=== PATIENT | male | born 1960 | race Caucasian/White ===

== ENCOUNTER 2018-03-13 14:27 | Observation (INO) | payer OTHER ==
[~2018-03-13] VITALS: Ht 175.3 cm; Wt 127.0 kg
[~2018-03-13 14:27] MED LIST: AMOXICILLIN/PO500 MG PO; CATAPRES0.1 MG PO; EQL ASPIRIN325 MG PO; FLOMAX0.4 M1 PO; HYDROCHLOROT25 MG PO; LORTAB 10 PO; METOPROL TAR100 MG PO; PRILOSEC20 MG/CAP PO; ULTRAM50 M1 PO
[2018-03-13] MEDS ORDERED: LEVOTHYROXIN25 MC1 PO (16:01)
[2018-03-13] MEDS ORDERED: AMLODIPINE BESYL5 MG PO (16:01)
[2018-03-13] MEDS ORDERED: ASPIRIN EC325 MG PO (16:02)
[2018-03-13 16:18] LABS: HEMATOCRIT 38.4 % (39.0-50.0); HEMOGLOBIN 12.6 g/dl (14.0-18.0); IMMATURE GRANULOCYTES 0.9 % (0.0-5.0); MEAN CELL VOLUME 85.7 fL CALC (80.0-100.0); MEAN CORPUSCULAR HGB 28.1 pG CALC (26.0-32.0); MEAN CORPUSCULAR HGB CONC 32.8 g/L CALC (32.0-36.0); NEUT# 12.5 thou/uL (1.82-7.42); RED BLOOD COUNT 4.48 mill/uL (4.70-6.10); RED CELL DISTRI WIDTH 13.2 % (11.5-15.5)
[2018-03-13 16:42] LABS: ALBUMIN 3.9 g/dL (3.2-5.0); BILIRUBIN, TOTAL 0.4 mg/dL (0.0-1.4); CREATININE 1.6 mg/dL (0.7-1.3); POTASSIUM 2.8 mmol/l (3.5-5.1); TOTAL PROTEIN 7.6 g/dL (6.3-8.2)
[2018-03-13] MEDS ORDERED: POTASSIUM99 MG PO (18:19)
[2018-03-13 18:30] VITALS: BP 155/80
[2018-03-13 18:44] LABS: URINE BILIRUBIN - DIPSTICK NEGATIVE (NEGATIVE); URINE BLOOD DIPSTICK NEGATIVE (NEGATIVE); URINE COLOR YELLOW; URINE GLUCOSE - DIPSTICK NEGATIVE (NEGATIVE); URINE KETONE NEGATIVE (NEGATIVE); URINE LEUK ESTERASE NEGATIVE (NEGATIVE); URINE NITRITE - DIPSTICK NEGATIVE (Negative); URINE PROTEIN - DIPSTICK TRACE mg/dL (NEG-TRACE); URINE SPECIFIC GRAVITY 1.015; URINE UROBILINOGEN - DIPSTICK 0.2 E.U./dL (0.2)
[2018-03-13 18:48] LABS: URINE CLARITY CLEAR
[2018-03-14 04:18] VITALS: BP 141/72
[2018-03-14 05:51] LABS: HEMOGLOBIN 11.3 g/dl (14.0-18.0); MEAN CELL VOLUME 86.5 fL CALC (80.0-100.0); MEAN CORPUSCULAR HGB 28.8 pG CALC (26.0-32.0); MEAN CORPUSCULAR HGB CONC 33.2 g/L CALC (32.0-36.0); RED BLOOD COUNT 3.93 mill/uL (4.70-6.10); RED CELL DISTRI WIDTH 13.2 % (11.5-15.5)
[2018-03-14 06:16] LABS: ANION GAP 11 (6-22 (CALC)); BUN 23 mg/dL (9-20); BUN/CREATININE RATIO 19 (12-20 (CALC)); CALCULATED LDLCHOLESTEROL 52 mg/dL (62-129 (CALC)); CARBON DIOXIDE 29 mmol/l (22-30); CHLORIDE 104 mmol/l (95-108); CHOLESTEROL HDL RATIO 4.2 (<4.4 (CALC)); CREATININE 1.2 mg/dL (0.7-1.3); GFR > 60 ML/MIN (>=60 (CALC)); GFR FOR AFR.AMER. > 60 ML/MIN (>=60 (CALC)); HDL CHOLESTEROL 20 mg/dL (>=40); MAGNESIUM 2.4 mg/dL (1.6-2.3); POTASSIUM 3.1 mmol/l (3.5-5.1); SODIUM 142 mmol/l (137-146); TOTAL CHOLESTEROL 85 mg/dl (0-199); TOTAL TRIGLYCERIDES 63 mg/dl (30-149); VLDL CHOLESTROL 13 mg/dl (8-62 (CALC))
[2018-03-14 08:15] VITALS: BP 146/77
[2018-03-14 11:09] LABS: INFLUENZA A NONE DETECTED (NONE DETECT); INFLUENZA B NONE DETECTED (NONE DETECT)
[2018-03-14 14:51] VITALS: BP 129/76
[2018-03-14 15:40] VITALS: BP 134/76
[2018-03-15 04:00] VITALS: BP 146/84
[2018-03-15 06:12] LABS: HEMOGLOBIN 11.8 g/dl (14.0-18.0); IMMATURE GRANULOCYTES 1.4 % (0.0-5.0); MEAN CELL VOLUME 86.7 fL CALC (80.0-100.0); MEAN CORPUSCULAR HGB 28.4 pG CALC (26.0-32.0); MEAN CORPUSCULAR HGB CONC 32.8 g/L CALC (32.0-36.0); NEUT# 13.39 thou/uL (1.82-7.42); RED BLOOD COUNT 4.15 mill/uL (4.70-6.10)
[2018-03-15 06:24] LABS: ANION GAP 15 (6-22 (CALC)); BUN 20 mg/dL (9-20); BUN/CREATININE RATIO 21 (12-20 (CALC)); CARBON DIOXIDE 28 mmol/l (22-30); CHLORIDE 103 mmol/l (95-108); GFR > 60 ML/MIN (>=60 (CALC)); GFR FOR AFR.AMER. > 60 ML/MIN (>=60 (CALC)); MAGNESIUM 2.3 mg/dL (1.6-2.3); POTASSIUM 3.4 mmol/l (3.5-5.1); SODIUM 143 mmol/l (137-146)
[2018-03-15 08:18] VITALS: BP 138/80
[2018-03-15 15:32] VITALS: BP 152/66
[2018-03-15 15:33] VITALS: BP 152/66
[2018-03-15 19:00] VITALS: BP 136/72
[2018-03-16 05:15] VITALS: BP 143/80
[2018-03-16 09:44] VITALS: BP 150/79
[2018-03-16 15:19] VITALS: BP 157/74
[2018-03-16 19:00] VITALS: BP 147/76
[2018-03-17 04:00] VITALS: BP 151/85
[2018-03-17 07:52] VITALS: BP 158/81
[2018-03-17 16:55] VITALS: BP 170/76
== END 2018-03-17 18:30 | disposition home or self-care (01) | DRG 603 ==
LOC: ED 14:27 → ED-I 17:34 → ED 17:45 → MS2 17:46
PROVIDERS: Emergency Medicine; Nurse Practitioner Family; ADMIT Internal Medicine; ATTEND Internal Medicine
DX: L03.115 Cellulitis of right lower limb (principal); M10.071 Idiopathic gout, right ankle and foot; Z68.41 Body mass index [BMI] 40.0-44.9, adult; N17.9 Acute kidney failure, unspecified; I10 Essential (primary) hypertension; E03.9 Hypothyroidism, unspecified; E66.01 Morbid (severe) obesity due to excess calories; E87.6 Hypokalemia; R26.9 Unspecified abnormalities of gait and mobility; D64.9 Anemia, unspecified; I25.2 Old myocardial infarction; Z86.73 Personal history of transient ischemic attack (TIA), and cerebral infarction without residual deficits
CPT/HCPCS: G0378; J1650

== ENCOUNTER 2018-03-25 10:43 | Inpatient (IN) | payer OTHER ==
[~2018-03-25] VITALS: Ht 175.3 cm; Wt 130.3 kg
[~2018-03-25 10:43] MED LIST changes: +AMLODIPINE BESYL5 MG PO; +ASPIRIN EC325 MG PO; +LEVOTHYROXIN25 MC1 PO; +POTASSIUM99 MG PO
[2018-03-25 12:17] LABS: HEMATOCRIT 34.8 % (39.0-50.0); HEMOGLOBIN 11.6 g/dl (14.0-18.0); MEAN CELL VOLUME 85.7 fL CALC (80.0-100.0); MEAN CORPUSCULAR HGB 28.6 pG CALC (26.0-32.0); MEAN CORPUSCULAR HGB CONC 33.3 g/L CALC (32.0-36.0); RED BLOOD COUNT 4.06 mill/uL (4.70-6.10); RED CELL DISTRI WIDTH 13.5 % (11.5-15.5)
[2018-03-25 12:41] LABS: ALBUMIN 3.1 g/dL (3.2-5.0); ALKALINE PHOSPHATASE 71 u/l (38-126); ANION GAP 15 (6-22 (CALC)); BILIRUBIN, TOTAL 0.7 mg/dL (0.0-1.4); BUN 27 mg/dL (9-20); BUN/CREATININE RATIO 28 (12-20 (CALC)); CARBON DIOXIDE 32 mmol/l (22-30); CHLORIDE 98 mmol/l (95-108); GFR > 60 ML/MIN (>=60 (CALC)); GFR FOR AFR.AMER. > 60 ML/MIN (>=60 (CALC)); SGOT/AST 48 u/l (17-59); SGPT/ALT 46 u/l (21-72); SODIUM 142 mmol/l (137-146); TOTAL PROTEIN 6.2 g/dL (6.3-8.2)
[2018-03-25 12:53] LABS: URINE BILIRUBIN - DIPSTICK NEGATIVE (NEGATIVE); URINE BLOOD DIPSTICK NEGATIVE (NEGATIVE); URINE GLUCOSE - DIPSTICK NEGATIVE (NEGATIVE); URINE KETONE NEGATIVE (NEGATIVE); URINE LEUK ESTERASE NEGATIVE (NEGATIVE); URINE NITRITE - DIPSTICK NEGATIVE (Negative)
[2018-03-25 12:55] LABS: URINE CLARITY CLEAR; URINE COLOR DK. YELLOW; URINE PROTEIN - DIPSTICK Trace mg/dL (NEG-TRACE)
[2018-03-25 12:58] LABS: BARBITURATES NEGATIVE (NEGATIVE); COCAINE NEGATIVE (NEGATIVE); METHADONE NEGATIVE (NEGATIVE); OXCYCODONE NEGATIVE (NEGATIVE); TETRAHYDROCANNABIONOL NEGATIVE (NEGATIVE); TRICYLIC ANTIDEPRESSANTS NEGATIVE (NEGATIVE)
[2018-03-25 15:00] VITALS: BP 136/83
[2018-03-25 19:40] VITALS: BP 112/69
[2018-03-26 03:45] VITALS: BP 122/73
[2018-03-26 05:59] LABS: HEMATOCRIT 36.1 % (39.0-50.0); HEMOGLOBIN 11.8 g/dl (14.0-18.0); IMMATURE GRANULOCYTES 0.9 % (0.0-5.0); MEAN CELL VOLUME 86.6 fL CALC (80.0-100.0); MEAN CORPUSCULAR HGB 28.3 pG CALC (26.0-32.0); MEAN CORPUSCULAR HGB CONC 32.7 g/L CALC (32.0-36.0); NEUT# 15.95 thou/uL (1.82-7.42); RED BLOOD COUNT 4.17 mill/uL (4.70-6.10); RED CELL DISTRI WIDTH 13.6 % (11.5-15.5)
[2018-03-26 06:16] LABS: ALKALINE PHOSPHATASE 73 u/l (38-126); ANION GAP 15 (6-22 (CALC)); BILIRUBIN, TOTAL 0.4 mg/dL (0.0-1.4); BUN 36 mg/dL (9-20); BUN/CREATININE RATIO 29 (12-20 (CALC)); CARBON DIOXIDE 31 mmol/l (22-30); CHLORIDE 99 mmol/l (95-108); CREATININE 1.2 mg/dL (0.7-1.3); GFR > 60 ML/MIN (>=60 (CALC)); GFR FOR AFR.AMER. > 60 ML/MIN (>=60 (CALC)); MAGNESIUM 2.4 mg/dL (1.6-2.3); POTASSIUM 3.5 mmol/l (3.5-5.1); SGOT/AST 27 u/l (17-59); SGPT/ALT 47 u/l (21-72); SODIUM 142 mmol/l (137-146); TOTAL PROTEIN 6.2 g/dL (6.3-8.2)
[2018-03-26 08:00] VITALS: BP 144/72
[2018-03-26 15:25] VITALS: BP 120/59
[2018-03-26 19:00] VITALS: BP 116/66
[2018-03-27 04:55] VITALS: BP 125/73
[2018-03-27 05:55] LABS: HEMATOCRIT 33.2 % (39.0-50.0); HEMOGLOBIN 10.9 g/dl (14.0-18.0); MEAN CELL VOLUME 85.8 fL CALC (80.0-100.0); MEAN CORPUSCULAR HGB 28.2 pG CALC (26.0-32.0); MEAN CORPUSCULAR HGB CONC 32.8 g/L CALC (32.0-36.0); RED BLOOD COUNT 3.87 mill/uL (4.70-6.10); RED CELL DISTRI WIDTH 13.2 % (11.5-15.5)
[2018-03-27 06:29] LABS: ANION GAP 15 (6-22 (CALC)); BUN 46 mg/dL (9-20); BUN/CREATININE RATIO 41 (12-20 (CALC)); CARBON DIOXIDE 28 mmol/l (22-30); CHLORIDE 97 mmol/l (95-108); CREATININE 1.1 mg/dL (0.7-1.3); GFR > 60 ML/MIN (>=60 (CALC)); GFR FOR AFR.AMER. > 60 ML/MIN (>=60 (CALC)); MAGNESIUM 2.4 mg/dL (1.6-2.3); POTASSIUM 3.6 mmol/l (3.5-5.1); SODIUM 137 mmol/l (137-146)
[2018-03-27 07:55] VITALS: BP 146/84
[2018-03-27 15:12] VITALS: BP 123/71
[2018-03-27 19:39] VITALS: BP 122/78
[2018-03-28 05:02] VITALS: BP 146/76
[2018-03-28 05:15] LABS: HEMATOCRIT 34.1 % (39.0-50.0); HEMOGLOBIN 11.4 g/dl (14.0-18.0); MEAN CELL VOLUME 84.6 fL CALC (80.0-100.0); MEAN CORPUSCULAR HGB 28.3 pG CALC (26.0-32.0); MEAN CORPUSCULAR HGB CONC 33.4 g/L CALC (32.0-36.0); RED BLOOD COUNT 4.03 mill/uL (4.70-6.10); RED CELL DISTRI WIDTH 12.9 % (11.5-15.5)
[2018-03-28 05:38] LABS: ANION GAP 12 (6-22 (CALC)); BUN 45 mg/dL (9-20); BUN/CREATININE RATIO 41 (12-20 (CALC)); CARBON DIOXIDE 33 mmol/l (22-30); CHLORIDE 94 mmol/l (95-108); CREATININE 1.1 mg/dL (0.7-1.3); GFR > 60 ML/MIN (>=60 (CALC)); GFR FOR AFR.AMER. > 60 ML/MIN (>=60 (CALC)); MAGNESIUM 2.5 mg/dL (1.6-2.3); SODIUM 135 mmol/l (137-146)
[2018-03-28 09:56] VITALS: BP 128/77
[2018-03-28 15:25] VITALS: BP 115/69
[2018-03-28 19:10] VITALS: BP 116/70
[2018-03-29 04:00] VITALS: BP 133/79
[2018-03-29 05:27] LABS: HEMATOCRIT 33.5 % (39.0-50.0); HEMOGLOBIN 11.2 g/dl (14.0-18.0); MEAN CELL VOLUME 84.2 fL CALC (80.0-100.0); MEAN CORPUSCULAR HGB 28.1 pG CALC (26.0-32.0); MEAN CORPUSCULAR HGB CONC 33.4 g/L CALC (32.0-36.0); RED BLOOD COUNT 3.98 mill/uL (4.70-6.10); RED CELL DISTRI WIDTH 12.8 % (11.5-15.5)
[2018-03-29 05:56] LABS: ANION GAP 12 (6-22 (CALC)); BUN 42 mg/dL (9-20); BUN/CREATININE RATIO 38 (12-20 (CALC)); CARBON DIOXIDE 33 mmol/l (22-30); CHLORIDE 95 mmol/l (95-108); CREATININE 1.1 mg/dL (0.7-1.3); GFR > 60 ML/MIN (>=60 (CALC)); GFR FOR AFR.AMER. > 60 ML/MIN (>=60 (CALC)); MAGNESIUM 2.5 mg/dL (1.6-2.3); POTASSIUM 3.8 mmol/l (3.5-5.1); SODIUM 136 mmol/l (137-146)
[2018-03-29 09:20] VITALS: BP 121/65
[2018-03-29 15:29] VITALS: BP 112/60
[2018-03-29 19:21] VITALS: BP 123/70
[2018-03-30 03:59] VITALS: BP 130/65
[2018-03-30 05:05] LABS: HEMATOCRIT 38.8 % (39.0-50.0); HEMOGLOBIN 12.8 g/dl (14.0-18.0)
[2018-03-30 05:29] LABS: ANION GAP 13 (6-22 (CALC)); BUN 36 mg/dL (9-20); BUN/CREATININE RATIO 38 (12-20 (CALC)); CARBON DIOXIDE 32 mmol/l (22-30); CHLORIDE 99 mmol/l (95-108); GFR > 60 ML/MIN (>=60 (CALC)); GFR FOR AFR.AMER. > 60 ML/MIN (>=60 (CALC)); SODIUM 140 mmol/l (137-146)
[2018-03-30 08:56] VITALS: BP 115/69
[2018-03-30 15:37] VITALS: BP 101/60
[2018-03-30 19:36] VITALS: BP 117/69
[2018-03-31 03:46] VITALS: BP 115/66
[2018-03-31 08:05] VITALS: BP 155/86
[2018-03-31] MEDS ORDERED: PREDNISONE20 MG PO (12:03)
[2018-03-31] MEDS ORDERED: PANTOPRAZOLE SO40 M1 PO (12:03)
[2018-03-31 14:26] VITALS: BP 155/86
== END 2018-03-31 15:59 | DRG 546 ==
LOC: ED 10:43 → ED-I 13:22 → ED 14:26 → MS2 14:27
PROVIDERS: Emergency Medicine; Nurse Practitioner Family; ADMIT Internal Medicine Nephrology; ATTEND Internal Medicine Nephrology
DX: M33.20 Polymyositis, organ involvement unspecified (principal); Z68.41 Body mass index [BMI] 40.0-44.9, adult; N17.9 Acute kidney failure, unspecified; M35.1 Other overlap syndromes; M06.9 Rheumatoid arthritis, unspecified; I10 Essential (primary) hypertension; E87.6 Hypokalemia; E03.9 Hypothyroidism, unspecified; T50.2X5A Adverse effect of carbonic-anhydrase inhibitors, benzothiadiazides and other diuretics, initial encounter; E66.01 Morbid (severe) obesity due to excess calories; D64.9 Anemia, unspecified

== ENCOUNTER 2018-06-19 05:57 | Emergency (ER) | payer OTHER ==
[~2018-06-19] VITALS: Ht 175.3 cm; Wt 139.5 kg
[~2018-06-19 05:57] MED LIST changes: +PANTOPRAZOLE SO40 M1 PO; +PREDNISONE20 MG PO
[2018-06-19 06:19] LABS: HEMATOCRIT 34.7 % (39.0-50.0); HEMOGLOBIN 11.6 g/dl (14.0-18.0); IMMATURE GRANULOCYTES 2.6 % (0.0-5.0); MEAN CELL VOLUME 85.9 fL CALC (80.0-100.0); MEAN CORPUSCULAR HGB 28.7 pG CALC (26.0-32.0); MEAN CORPUSCULAR HGB CONC 33.4 g/L CALC (32.0-36.0); NEUT# 12.97 thou/uL (1.82-7.42); RED BLOOD COUNT 4.04 mill/uL (4.70-6.10); RED CELL DISTRI WIDTH 15.3 % (11.5-15.5)
[2018-06-19 06:35] LABS: ALBUMIN 3.5 g/dL (3.2-5.0); ALKALINE PHOSPHATASE 87 u/l (38-126); ANION GAP 16 (6-22 (CALC)); BILIRUBIN, TOTAL 0.5 mg/dL (0.0-1.4); BUN 39 mg/dL (9-20); BUN/CREATININE RATIO 35 (12-20 (CALC)); CARBON DIOXIDE 28 mmol/l (22-30); CHLORIDE 97 mmol/l (95-108); CREATININE 1.1 mg/dL (0.7-1.3); GFR > 60 ML/MIN (>=60 (CALC)); GFR FOR AFR.AMER. > 60 ML/MIN (>=60 (CALC)); POTASSIUM 3.3 mmol/l (3.5-5.1); SODIUM 138 mmol/l (137-146); TOTAL PROTEIN 6.3 g/dL (6.3-8.2)
[2018-06-19 06:38] LABS: SGOT/AST 55 u/l (17-59)
[2018-06-19 06:47] LABS: MYOGLOBIN 146 ng/mL (0 - 121)
[2018-06-19 07:09] LABS: TSH, 3RD GENERATION 5.49 uIU/mL (0.47 - 4.68)
[2018-06-19 07:11] LABS: URINE BILIRUBIN - DIPSTICK NEGATIVE (NEGATIVE); URINE BLOOD DIPSTICK NEGATIVE (NEGATIVE); URINE CLARITY CLEAR; URINE COLOR YELLOW; URINE GLUCOSE - DIPSTICK NEGATIVE (NEGATIVE); URINE KETONE NEGATIVE (NEGATIVE); URINE LEUK ESTERASE NEGATIVE (Negative); URINE NITRITE - DIPSTICK NEGATIVE (Negative); URINE PH 6.5 (4.5-8.0); URINE PROTEIN - DIPSTICK NEGATIVE (NEG-TRACE); URINE SPECIFIC GRAVITY 1.015; URINE UROBILINOGEN - DIPSTICK 0.2 E.U./dL (0.2)
[2018-06-19 07:16] LABS: BARBITURATES NEGATIVE (NEGATIVE); COCAINE NEGATIVE (NEGATIVE); METHADONE NEGATIVE (NEGATIVE); OXCYCODONE NEGATIVE (NEGATIVE); TRICYLIC ANTIDEPRESSANTS NEGATIVE (NEGATIVE)
[2018-06-19 07:50] VITALS: BP 129/59
[2018-06-19 13:48] LABS: TETRAHYDROCANNABIONOL NEGATIVE (NEGATIVE)
== END 2018-06-19 07:55 | disposition home or self-care (01) | DRG 312 ==
LOC: ED 05:57
PROVIDERS: Emergency Medicine
DX: R55 Syncope and collapse (principal); Y93.89 Activity, other specified; Y92.512 Supermarket, store or market as the place of occurrence of the external cause; Y99.0 Civilian activity done for income or pay; I10 Essential (primary) hypertension

== ENCOUNTER 2018-06-26 16:35 | Emergency (ER) | payer OTHER ==
[~2018-06-26] VITALS: Ht 175.3 cm; Wt 140.0 kg
[2018-06-26] MEDS ORDERED: PREDNISONE10 MG PO (18:31)
[2018-06-26] MEDS ORDERED: COLCHICINE0.6 M2 PO (18:31)
[2018-06-26] MEDS ORDERED: [UNRECOGNIZED DRUG - REMARK] (19:55)
[2018-06-26 20:07] VITALS: BP 174/73
== END 2018-06-26 20:07 | disposition home or self-care (01) | DRG 554 ==
LOC: ED 16:35
DX: M10.09 Idiopathic gout, multiple sites (principal); I10 Essential (primary) hypertension; I25.2 Old myocardial infarction; Z86.73 Personal history of transient ischemic attack (TIA), and cerebral infarction without residual deficits

== ENCOUNTER 2018-07-23 20:42 | Emergency (ER) | payer OTHER ==
[~2018-07-23] VITALS: Ht 175.3 cm; Wt 130.9 kg
[~2018-07-23 20:42] MED LIST changes: +COLCHICINE0.6 M2 PO; +PREDNISONE10 MG PO; +[UNRECOGNIZED DRUG - REMARK]
[2018-07-23] MEDS ORDERED: ASPIRIN 81 LOW81 MG PO (20:54)
[2018-07-23] MEDS ORDERED: CLONIDINE0.1 MG PO (20:55)
[2018-07-23 21:25] LABS: ALBUMIN 3.2 g/dL (3.2-5.0); ALKALINE PHOSPHATASE 81 u/l (38-126); ANION GAP 16 (6-22 (CALC)); BILIRUBIN, TOTAL 0.3 mg/dL (0.0-1.4); BUN 12 mg/dL (9-20); BUN/CREATININE RATIO 15 (12-20 (CALC)); CARBON DIOXIDE 27 mmol/l (22-30); CHLORIDE 103 mmol/l (95-108); CREATININE 0.8 mg/dL (0.7-1.3); GFR > 60 ML/MIN (>=60 (CALC)); GFR FOR AFR.AMER. > 60 ML/MIN (>=60 (CALC)); POTASSIUM 3.4 mmol/l (3.5-5.1); SGOT/AST 24 u/l (17-59); SODIUM 142 mmol/l (137-146); TOTAL PROTEIN 6.1 g/dL (6.3-8.2)
[2018-07-23] MEDS ORDERED: PREDNISONE50 MG PO (21:37)
[2018-07-23 22:18] VITALS: BP 159/79
== END 2018-07-23 22:05 | disposition home or self-care (01) | DRG 554 ==
LOC: ED 20:42
PROVIDERS: Family Medicine
DX: M10.9 Gout, unspecified (principal); M25.561 Pain in right knee

== ENCOUNTER 2018-10-30 16:59 | Emergency (ER) | payer OTHER ==
[~2018-10-30] VITALS: Ht 175.3 cm; Wt 131.8 kg
[~2018-10-30 16:59] MED LIST changes: +ASPIRIN 81 LOW81 MG PO; +CLONIDINE0.1 MG PO; +PREDNISONE50 MG PO
[2018-10-30 17:43] LABS: HEMOGLOBIN 12.6 g/dl (14.0-18.0); IMMATURE GRANULOCYTES 0.7 % (0.0-5.0); MEAN CELL VOLUME 80.8 fL CALC (80.0-100.0); MEAN CORPUSCULAR HGB 25.5 pG CALC (26.0-32.0); MEAN CORPUSCULAR HGB CONC 31.5 g/L CALC (32.0-36.0); NEUT# 5.81 thou/uL (1.82-7.42); RED BLOOD COUNT 4.95 mill/uL (4.70-6.10); RED CELL DISTRI WIDTH 14.6 % (11.5-15.5)
[2018-10-30 18:04] LABS: ANION GAP 12 (6-22 (CALC)); BILIRUBIN, TOTAL 0.3 mg/dL (0.0-1.4); BUN 12 mg/dL (9-20); BUN/CREATININE RATIO 14 (12-20 (CALC)); CARBON DIOXIDE 30 mmol/l (22-30); CHLORIDE 101 mmol/l (95-108); CREATININE 0.9 mg/dL (0.7-1.3); GFR > 60 ML/MIN (>=60 (CALC)); GFR FOR AFR.AMER. > 60 ML/MIN (>=60 (CALC)); LIPASE 95 u/l (23-300); POTASSIUM 3.3 mmol/l (3.5-5.1); SGOT/AST 20 u/l (17-59); SODIUM 140 mmol/l (137-146); TOTAL PROTEIN 6.9 g/dL (6.3-8.2)
[2018-10-30 18:06] LABS: ALBUMIN 4.1 g/dL (3.2-5.0); ALKALINE PHOSPHATASE 139 u/l (38-126)
[2018-10-30 18:09] LABS: URINE BILIRUBIN - DIPSTICK NEGATIVE (NEGATIVE); URINE BLOOD DIPSTICK NEGATIVE (NEGATIVE); URINE COLOR YELLOW; URINE GLUCOSE - DIPSTICK NEGATIVE (NEGATIVE); URINE KETONE NEGATIVE (NEGATIVE); URINE LEUK ESTERASE NEGATIVE (NEGATIVE); URINE NITRITE - DIPSTICK NEGATIVE (Negative); URINE PH 6.5 (4.5-8.0); URINE PROTEIN - DIPSTICK NEGATIVE (NEG-TRACE); URINE UROBILINOGEN - DIPSTICK 0.2 E.U./dL (0.2)
[2018-10-30] MEDS ORDERED: FIORICET PO (21:02)
[2018-10-30 21:05] VITALS: BP 171/85
== END 2018-10-30 21:18 | disposition home or self-care (01) | DRG 313 ==
LOC: ED 16:59
PROVIDERS: Family Medicine
DX: R07.89 Other chest pain (principal); R53.1 Weakness; R51 Headache; R06.02 Shortness of breath; R50.9 Fever, unspecified; R94.31 Abnormal electrocardiogram [ECG] [EKG]

== ENCOUNTER 2019-01-02 08:33 | Inpatient (IN) | payer SELFPAY ==
[~2019-01-02] VITALS: Ht 175.3 cm; Wt 139.7 kg
[~2019-01-02 08:33] MED LIST changes: +FIORICET PO
[2019-01-02] MEDS ORDERED: METOPROLOL SUCC50 MG PO (08:58)
[2019-01-02 09:29] LABS: HEMATOCRIT 38.1 % (39.0-50.0); HEMOGLOBIN 11.9 g/dl (14.0-18.0); IMMATURE GRANULOCYTES 0.8 % (0.0-5.0); MEAN CELL VOLUME 79.4 fL CALC (80.0-100.0); MEAN CORPUSCULAR HGB 24.8 pG CALC (26.0-32.0); MEAN CORPUSCULAR HGB CONC 31.2 g/L CALC (32.0-36.0); NEUT# 10.46 thou/uL (1.82-7.42); RED BLOOD COUNT 4.8 mill/uL (4.70-6.10); RED CELL DISTRI WIDTH 15.2 % (11.5-15.5)
[2019-01-02 09:43] LABS: ALBUMIN 3.8 g/dL (3.2-5.0); ALKALINE PHOSPHATASE 137 u/l (38-126); ANION GAP 15 (6-22 (CALC)); BUN 12 mg/dL (9-20); BUN/CREATININE RATIO 13 (12-20 (CALC)); CARBON DIOXIDE 28 mmol/l (22-30); CHLORIDE 101 mmol/l (95-108); CREATININE 0.9 mg/dL (0.7-1.3); GFR > 60 ML/MIN (>=60 (CALC)); GFR FOR AFR.AMER. > 60 ML/MIN (>=60 (CALC)); POTASSIUM 3.3 mmol/l (3.5-5.1); SGOT/AST 17 u/l (17-59); SODIUM 141 mmol/l (137-146); TOTAL PROTEIN 6.5 g/dL (6.3-8.2)
[2019-01-02 09:46] LABS: BILIRUBIN, TOTAL 0.5 mg/dL (0.0-1.4)
[2019-01-02 11:34] VITALS: BP 137/68
[2019-01-02 11:34] LABS: URINE BILIRUBIN - DIPSTICK NEGATIVE (NEGATIVE); URINE BLOOD DIPSTICK NEGATIVE (NEGATIVE); URINE COLOR YELLOW; URINE GLUCOSE - DIPSTICK NEGATIVE (NEGATIVE); URINE KETONE NEGATIVE (NEGATIVE); URINE LEUK ESTERASE NEGATIVE (NEGATIVE); URINE NITRITE - DIPSTICK NEGATIVE (Negative); URINE PH 6.5 (4.5-8.0); URINE PROTEIN - DIPSTICK 30 mg/dL (NEG-TRACE); URINE UROBILINOGEN - DIPSTICK 0.2 E.U./dL (0.2)
[2019-01-02 16:13] VITALS: BP 152/85
[2019-01-02 19:00] VITALS: BP 186/81
[2019-01-02 22:40] VITALS: BP 152/68
[2019-01-03] VITALS (8 sets, daily range): BP systolic 142–180; BP diastolic 70–87
[2019-01-03 05:57] LABS: HEMATOCRIT 40.3 % (39.0-50.0); HEMOGLOBIN 12.5 g/dl (14.0-18.0); MEAN CELL VOLUME 81.1 fL CALC (80.0-100.0); MEAN CORPUSCULAR HGB 25.2 pG CALC (26.0-32.0); NEUT# 11.34 thou/uL (1.82-7.42); RED BLOOD COUNT 4.97 mill/uL (4.70-6.10); RED CELL DISTRI WIDTH 15.1 % (11.5-15.5)
[2019-01-03 06:13] LABS: ALBUMIN 3.8 g/dL (3.2-5.0); ALKALINE PHOSPHATASE 134 u/l (38-126); AMYLASE 31 u/l (30-110); ANION GAP 15 (6-22 (CALC)); BILIRUBIN, TOTAL 0.4 mg/dL (0.0-1.4); BUN 11 mg/dL (9-20); BUN/CREATININE RATIO 14 (12-20 (CALC)); CARBON DIOXIDE 32 mmol/l (22-30); CHLORIDE 99 mmol/l (95-108); CREATININE 0.7 mg/dL (0.7-1.3); GFR > 60 ML/MIN (>=60 (CALC)); GFR FOR AFR.AMER. > 60 ML/MIN (>=60 (CALC)); LIPASE 23 u/l (23-300); POTASSIUM 3.6 mmol/l (3.5-5.1); SGOT/AST 19 u/l (17-59); SODIUM 143 mmol/l (137-146); TOTAL PROTEIN 6.7 g/dL (6.3-8.2)
[2019-01-04] VITALS (9 sets, daily range): BP systolic 150–178; BP diastolic 70–94
[2019-01-04 05:04] LABS: HEMATOCRIT 39.9 % (39.0-50.0); HEMOGLOBIN 12.3 g/dl (14.0-18.0); IMMATURE GRANULOCYTES 1.2 % (0.0-5.0); MEAN CELL VOLUME 80.4 fL CALC (80.0-100.0); MEAN CORPUSCULAR HGB 24.8 pG CALC (26.0-32.0); MEAN CORPUSCULAR HGB CONC 30.8 g/L CALC (32.0-36.0); NEUT# 15.21 thou/uL (1.82-7.42); RED BLOOD COUNT 4.96 mill/uL (4.70-6.10); RED CELL DISTRI WIDTH 15.1 % (11.5-15.5)
[2019-01-04 05:24] LABS: ANION GAP 14 (6-22 (CALC)); BUN 18 mg/dL (9-20); BUN/CREATININE RATIO 23 (12-20 (CALC)); CARBON DIOXIDE 32 mmol/l (22-30); CHLORIDE 101 mmol/l (95-108); CREATININE 0.8 mg/dL (0.7-1.3); GFR > 60 ML/MIN (>=60 (CALC)); GFR FOR AFR.AMER. > 60 ML/MIN (>=60 (CALC)); MAGNESIUM 2.2 mg/dL (1.6-2.3); POTASSIUM 3.5 mmol/l (3.5-5.1); SODIUM 143 mmol/l (137-146)
[2019-01-05 01:46] VITALS: BP 150/75
[2019-01-05 04:17] VITALS: BP 142/66
[2019-01-05 08:00] VITALS: BP 137/60
[2019-01-05 12:00] VITALS: BP 166/77
[2019-01-05] MEDS ORDERED: DOXYCYCL HYC100 MG PO (13:20)
== END 2019-01-05 14:38 | disposition home or self-care (01) | DRG 194 ==
LOC: ED 08:33 → ED-I 09:48 → ED 10:03 → MS2 10:04
PROVIDERS: Family Medicine; Nurse Practitioner Family; ADMIT Internal Medicine Nephrology; ATTEND Internal Medicine Nephrology
PROC: 0SJC3ZZ Inspection of Right Knee Joint, Percutaneous Approach (ICD-10-PCS; principal; 2019-01-02)
DX: J18.9 Pneumonia, unspecified organism (principal); Z68.42 Body mass index [BMI] 45.0-49.9, adult; I16.0 Hypertensive urgency; I10 Essential (primary) hypertension; E87.6 Hypokalemia; E66.01 Morbid (severe) obesity due to excess calories; D64.9 Anemia, unspecified; E03.9 Hypothyroidism, unspecified; M10.09 Idiopathic gout, multiple sites; M15.0 Primary generalized (osteo)arthritis; R09.02 Hypoxemia; T50.4X6A Underdosing of drugs affecting uric acid metabolism, initial encounter; I25.2 Old myocardial infarction; Z86.73 Personal history of transient ischemic attack (TIA), and cerebral infarction without residual deficits; Z91.120 Patient's intentional underdosing of medication regimen due to financial hardship
CPT/HCPCS: J1650; Q9967

== ENCOUNTER 2021-03-09 15:12 | Emergency (ER) | payer MEDICARE, MEDICAID ==
[~2021-03-09] VITALS: Ht 175.3 cm; Wt 141.0 kg
[~2021-03-09 15:12] MED LIST changes: +DOXYCYCL HYC100 MG PO; +METOPROLOL SUCC50 MG PO
[2021-03-09 15:54] LABS: HEMATOCRIT 37.3 % (39.0-50.0); HEMOGLOBIN 12.8 g/dl (14.0-18.0); IMMATURE GRANULOCYTES 3.6 % (0.0-5.0); MEAN CELL VOLUME 83.6 fL CALC (80.0-100.0); MEAN CORPUSCULAR HGB 28.7 pG CALC (26.0-32.0); MEAN CORPUSCULAR HGB CONC 34.3 g/dL CAL (32.0-36.0); NEUT# 17.01 thou/uL (1.82-7.42); RED BLOOD COUNT 4.46 mill/uL (4.70-6.10); RED CELL DISTRI WIDTH 13.5 % (11.5-15.5)
[2021-03-09 16:40] LABS: INTERNATIONAL NORMALIZED RATIO 1.2 RATIO (0.7-1.3); PROTHROMBIN TIME 12.3 SECONDS (9.0-12.5)
[2021-03-09 17:11] LABS: ALBUMIN 3.8 g/dL (3.2-5.0); ALKALINE PHOSPHATASE 73 u/l (38-126); LIPASE 521 u/l (23-300); SGOT/AST 19 u/l (17-59)
[2021-03-09 17:38] LABS: BUN/CREATININE RATIO 8 (12-20 (CALC)); GFR 3 ML/MIN (>=60 (CALC)); GFR FOR AFR.AMER. 3 ML/MIN (>=60 (CALC)); SODIUM 123 mmol/l (137-146)
[2021-03-09 17:39] LABS: ANION GAP 30 (6-22 (CALC)); BILIRUBIN, TOTAL 0.2 mg/dL (0.0-1.4); CARBON DIOXIDE 14 mmol/l (22-30); CHLORIDE 87 mmol/l (95-108)
[2021-03-09 17:40] LABS: BUN 147 mg/dL (9-20); CREATININE 17.4 mg/dL (0.7-1.3)
[2021-03-09 17:41] LABS: POTASSIUM 7.7 mmol/l (3.5-5.1)
[2021-03-09 20:06] LABS: URINE BILIRUBIN - DIPSTICK NEGATIVE (NEGATIVE); URINE BLOOD DIPSTICK TRACE-INTACT (NEGATIVE); URINE COLOR YELLOW; URINE GLUCOSE - DIPSTICK NEGATIVE (NEGATIVE); URINE KETONE NEGATIVE (NEGATIVE); URINE LEUK ESTERASE TRACE (NEGATIVE); URINE PROTEIN - DIPSTICK NEGATIVE (NEG-TRACE); URINE UROBILINOGEN - DIPSTICK 0.2 E.U./dL (0.2)
[2021-03-09 20:09] LABS: URINE NITRITE - DIPSTICK NEGATIVE (Negative)
[2021-03-09] MEDS ORDERED: MITIGARE0.6 MG PO (21:23)
[2021-03-09 21:30] VITALS: BP 140/66
== END 2021-03-09 21:38 | disposition short-term general hospital (02) ==
LOC: ED 15:12
PROVIDERS: Family Medicine
PROC: 0T9B70Z Drainage of Bladder with Drainage Device, Via Natural or Artificial Opening (ICD-10-PCS; principal; 2021-03-09)
PROC: 05HM33Z Insertion of Infusion Device into Right Internal Jugular Vein, Percutaneous Approach (ICD-10-PCS; 2021-03-09)
PROC: 0BH17EZ Insertion of Endotracheal Airway into Trachea, Via Natural or Artificial Opening (ICD-10-PCS; 2021-03-09)
DX: A41.9 Sepsis, unspecified organism (principal); R65.20 Severe sepsis without septic shock; J18.9 Pneumonia, unspecified organism; N17.0 Acute kidney failure with tubular necrosis; E87.5 Hyperkalemia; E87.2 Acidosis; I95.9 Hypotension, unspecified; E87.1 Hypo-osmolality and hyponatremia; E83.51 Hypocalcemia; E86.9 Volume depletion, unspecified; I10 Essential (primary) hypertension; M10.9 Gout, unspecified; I25.2 Old myocardial infarction; Z86.73 Personal history of transient ischemic attack (TIA), and cerebral infarction without residual deficits; Z20.822 Contact with and (suspected) exposure to COVID-19